=== PATIENT | female | born 2000 | race Caucasian/White ===

== ENCOUNTER 2021-08-09 06:10 | Emergency (ER) | payer OTHER ==
[~2021-08-09] VITALS: Ht 157.5 cm; Wt 47.2 kg
[2021-08-09] MEDS ORDERED: GOCOVRI68.5 MG (06:23)
[2021-08-09] MEDS ORDERED: PROZAC20 MG (06:23)
[2021-08-09] MEDS ORDERED: ABILIFY5 MG (06:23)
[2021-08-09] MEDS ORDERED: DYANAVEL X2.5 MG/1 M (06:24)
== END 2021-08-09 11:46 | disposition home or self-care (01) ==
LOC: ER 06:10 → EMR PED 06:15
DX: A49.3 Mycoplasma infection, unspecified site (principal); B34.9 Viral infection, unspecified; J02.9 Acute pharyngitis, unspecified

== ENCOUNTER 2021-11-25 02:59 | Emergency (ER) | payer OTHER ==
[~2021-11-25] VITALS: Ht 157.5 cm; Wt 50.3 kg
[~2021-11-25 02:59] MED LIST: ABILIFY5 MG; DYANAVEL X2.5 MG/1 M; GOCOVRI68.5 MG; PROZAC20 MG
[2021-11-25] MEDS ORDERED: FLUCONAZOLE150 MG PO (05:03)
[2021-11-25] MEDS ORDERED: MONISTAT 745 GM VAG (05:03)
== END 2021-11-25 05:12 ==
LOC: ER 02:59
DX: B37.3 Candidiasis of vulva and vagina (principal)